=== PATIENT | female | born 1945 | race African-American/Black ===

== ENCOUNTER 2017-12-19 10:28 | Emergency (ER) | payer MEDICARE, OTHER ==
--- NOTE | 2017-12-19 11:32 | RAD ---
PORTABLE AP CHEST: Date: 12/19/17 HISTORY: Chest pain. Heart racing for 2 weeks. COMPARISON: None available. FINDINGS: Cardiac silhouette and pulmonary vasculature are within normal limits for the portable technique of t he study. There is mild elevation right hemidiaphragm. The lungs are clear. Degenerative changes are noted in the spine. Minimal vascular calcifications seen in the region of the aortic arch. Surgical c lips overlie the right axillary region. There is osteopenia. IMPRESSION: No acute cardiopulmonary process. POS: CET
[2017-12-19 11:42] LABS: #Eosinphils 0.1 thou/uL (0.0-0.7); #Lymphocytes 3.4 thou/uL (1.20-3.40); #Monocytes 0.4 thou/uL (0.11-0.59); #Neutrophils 3.2 thou/uL (1.40-6.50); %Basophils 0.1 % (0.0-1.0); %Eosinophils 0.8 % (0.0-10.0); %Lymphocytes 48.5 % (21.0-51.0); %Monocytes 5.2 % (0.0-10.0); %Neutrophils 45.4 % (42.0-75.0); Hemoglobin 12.9 g/dL (12.0-16.0); Mean Corpuscular HGB CONC 31.3 g/dL (32.0-36.0); Mean Corpuscular Hemoglobin 27.2 pg (27.0-31.0); Mean Corpuscular Volume 86.6 fl (81.0-99.0); Mean Platelet Volume 7.2 fL (7.4-10.4); Platelet Count 267 thou/uL (130-400); Red Blood Cell (RBC) Count 4.75 mill/uL (4.20-5.40)
[2017-12-19 11:58] LABS: CKMB 1.1 ng/mL (0-6.6); Troponin I Less than 0.010 ng/mL (< 0.028)
[2017-12-19 12:08] LABS: ALT (SGPT) 19 U/L (8-55); AST (SGOT) 19 U/L (5-34); Albumin 4.5 g/dL (3.4-4.8); Alkaline Phosphatase 142 U/L (40-150); Anion Gap 18 mmol/L (10-20); BUN (Urea Nitrogen) 9 mg/dL (9.8-20.1); Bilirubin, Total 0.4 mg/dL (0.2-1.2); CK (CPK) 59 U/L (29-168); Calc. Creatinine Clearance 0 mL/min (70-130); Calcium 9.8 mg/dL (7.8-10.44); Carbon Dioxide 22 mmol/L (23-31); Chloride 105 mmol/L (98-107); Estimated GFR-MDRD Greater than 90; Globulin 2.9 g/dL (2.4-3.5); Glucose 64 mg/dL (80-115); Lipase 41 U/L (8-78); Potassium 4.2 mmol/L (3.5-5.1); Protein, Total 7.4 g/dL (6.0-8.3); Sodium 141 mmol/L (136-145)
== END 2017-12-19 13:44 | disposition home or self-care (01) ==
LOC: ERS 10:28
DX: R53.1 Weakness (principal); R00.2 Palpitations; F41.9 Anxiety disorder, unspecified; F32.9 Major depressive disorder, single episode, unspecified; Z79.899 Other long term (current) drug therapy; Z79.82 Long term (current) use of aspirin
CPT/HCPCS: 36415; 71045; 80053; 82553; 83690; 83880; 84484; 85025; 93005